=== PATIENT | male | born 1960 | race Caucasian/White ===

== ENCOUNTER 2024-07-15 08:33 | Inpatient (IN) | payer MEDICARE, OTHER ==
[~2024-07-15] VITALS: Ht 180.3 cm; Wt 129.3 kg
[~2024-07-15 08:33] MED LIST: VITAMIN D-40010 MCG PO
[2024-07-15] MEDS ORDERED: ACETAMINOPHEN 325 MG TAB PO PRN (16:20)
[2024-07-15] MEDS ORDERED: [UNRECOGNIZED DRUG - OTHER] IM PRN (16:25)
[2024-07-15] MEDS ORDERED: MG-AL HYDROXIDE/SIMETICONE 30 ML UDC PO PRN (16:25)
[2024-07-15] MEDS ORDERED: LORazepam 2 MG/ML VIAL IM PRN (16:25)
[2024-07-15] MEDS ORDERED: WATER STERILE IM PRN (16:25)
[2024-07-15] MEDS ORDERED: LORazepam 1 MG TAB PO PRN (16:25)
[2024-07-15] MEDS ORDERED: Magnesium Hydroxide 30 ML UDC PO PRN (16:25)
[2024-07-15] MEDS ORDERED: Ziprasidone Mesylate 20 MG VIAL IM PRN (17:00)
[2024-07-15] MEDS ORDERED: JARDIANCE25 MG PO (18:12)
[2024-07-15] MEDS ORDERED: XYZAL5 M1 PO (18:13)
[2024-07-15] MEDS ORDERED: LOSARTAN POTASS25 M1 PO (18:14)
[2024-07-15] MEDS ORDERED: MELATONIN3 MG PO (18:16)
[2024-07-15] MEDS ORDERED: NOVOLOG100 UNIT/1 SQ (18:17)
[2024-07-15] MEDS ORDERED: MIRTAZAPINE15 M2 PO (18:17)
[2024-07-15] MEDS ORDERED: PANTOPRAZOLE SO40 MG PO (18:20)
[2024-07-15] MEDS ORDERED: ROSUVASTATIN CA20 MG PO (18:21)
[2024-07-15] MEDS ORDERED: POTASSIUM CHLO20 MEQ PO (18:21)
[2024-07-15] MEDS ORDERED: NORVASC5 MG PO (18:22)
[2024-07-15] MEDS ORDERED: VAZALORE81 MG PO (18:23)
[2024-07-15] MEDS ORDERED: BUMETANIDE2 MG PO (18:24)
[2024-07-15] MEDS ORDERED: COLESEVELAM HC625 MG PO (18:25)
[2024-07-15] MEDS ORDERED: CLOPIDOGREL75 MG PO (18:25)
[2024-07-15] MEDS ORDERED: VISTARIL25 MG PO (18:26)
[2024-07-15] MEDS ORDERED: Mirtazapine 15 MG TAB PO SCH (21:00)
[2024-07-15] MEDS ORDERED: RISPERIDONE 1 MG TAB PO SCH (21:00)
[2024-07-17] MEDS ORDERED: REMERON15 M2 PO (11:30)
[2024-07-17 14:27] VITALS: BP 139/58
[2024-07-18] MEDS ORDERED: Pantoprazole Sodium 40 MG TAB PO SCH (06:00)
[2024-07-18 08:00] VITALS: BP 149/59
[2024-07-18] MEDS ORDERED: INSULIN LISPRO 1 UNIT/0.01 ML SQ SCH ×2 (08:00→11:30)
[2024-07-18] MEDS ORDERED: Cetirizine Hydrochloride 10 MG TAB PO SCH (09:00)
[2024-07-18] MEDS ORDERED: ASPIRIN, CHEWABLE 81 MG TAB PO SCH (09:00)
[2024-07-18] MEDS ORDERED: amLODIPine besylate 5 MG TAB PO SCH (10:00)
[2024-07-18] MEDS ORDERED: BUMETANIDE 1 MG TAB PO SCH (10:00)
[2024-07-18] MEDS ORDERED: hydrOXYzine pamoate 25 MG CAP PO SCH (10:00)
[2024-07-18] MEDS ORDERED: Clopidogrel Hydrogen Sulfate 75 MG TAB PO SCH (10:00)
[2024-07-18] MEDS ORDERED: EMPAGLIFLOZIN 25 MG TABLET PO SCH (10:00)
[2024-07-18] MEDS ORDERED: Losartan Potassium 25 MG TAB PO SCH (10:00)
[2024-07-18] MEDS ORDERED: DEXTROSE 10 % IN WATER 250 ML IV PRN (10:15)
[2024-07-18 20:00] VITALS: BP 137/63
[2024-07-18] MEDS ORDERED: ATORVASTATIN CALCIUM 80 MG TAB PO SCH (21:00)
[2024-07-18] MEDS ORDERED: RISPERIDONE 0.5 MG TAB PO SCH (21:00)
[2024-07-18] MEDS ORDERED: RAMELTEON 8 MG TAB PO SCH (21:00)
[2024-07-18] MEDS ORDERED: Mirtazapine 15 MG TAB PO SCH (22:00)
[2024-07-19 08:00] VITALS: BP 158/66
[2024-07-19] MEDS ORDERED: Losartan Potassium 25 MG TAB PO SCH (09:00)
[2024-07-19] MEDS ORDERED: EMPAGLIFLOZIN 25 MG TABLET PO SCH (09:00)
[2024-07-19] MEDS ORDERED: BUMETANIDE 1 MG TAB PO SCH (09:00)
[2024-07-19] MEDS ORDERED: amLODIPine besylate 5 MG TAB PO SCH (09:00)
[2024-07-19] MEDS ORDERED: Clopidogrel Hydrogen Sulfate 75 MG TAB PO SCH (09:00)
[2024-07-19] MEDS ORDERED: hydrOXYzine pamoate 25 MG CAP PO SCH ×2 (09:00→13:00)
[2024-07-19] MEDS ORDERED: Loperamide Hydrochloride 2 MG CAP PO ONE ×2 (12:40→13:05)
[2024-07-19 20:00] VITALS: BP 145/70
[2024-07-19] MEDS ORDERED: CLOZAPINE PO SCH (21:00)
[2024-07-20 08:16] VITALS: BP 145/55
[2024-07-20 20:00] VITALS: BP 134/50
[2024-07-21 08:00] VITALS: BP 120/74
[2024-07-21] MEDS ORDERED: diphenhydrAMINE hydrochloride 25 MG CAP PO ONE (09:20)
[2024-07-21] MEDS ORDERED: CLOZARIL PO ONE (09:20)
[2024-07-21] MEDS ORDERED: MED. FROM HOME 1 EACH EA PO ONE (10:25)
[2024-07-21] MEDS ORDERED: SODIUM CHLORIDE 0.9% 1,000 ML IV ONE (14:35)
[2024-07-21 20:00] VITALS: BP 120/74; BP 145/62
[2024-07-21] MEDS ORDERED: Mirtazapine 15 MG TAB PO SCH (21:00)
[2024-07-21] MEDS ORDERED: MED. FROM HOME 1 EACH EA PO SCH (21:00)
[2024-07-21] MEDS ORDERED: TEMAZEPAM 15 MG CAP PO PRN (22:00)
[2024-07-21] MEDS ORDERED: clonAZEPAM 1 MG TAB PO ONE (22:30)
[2024-07-22 07:37] LABS: BASO % 0.5 % (0.0-1.0); EOS % 0.2 % (1.0-4.0); HEMATOCRIT 46.3 % (42.0-52.0); MEAN CELL VOLUME 89.2 fl (80.0-94.0); MEAN CORPUSCULAR HGB 30.4 pg (27.0-31.0); MEAN CORPUSCULAR HGB CONC 34.1 g/dl (33.0-37.0); MEAN PLATELET VOLUME 8.9 fl (9.6-12.3); MONO # 0.8 10*3/uL (0.1-1.0); MONO % 9.4 % (3.0-9.0); NEUT # 5.6 10*3/uL (2.3-7.9); NEUT % 68.5 % (47.0-73.0); PLATELET COUNT AUTOMATED 254 10*3/uL (130-400); RED BLOOD COUNT 5.19 10*6/uL (4.50-5.90); RED CELL DISTRI WIDTH 12.5 % (0-14.5); WHITE BLOOD COUNT 8.2 10*3/uL (4.8-10.8)
[2024-07-22 07:58] LABS: ALKALINE PHOSPHATASE 61 U/L (46-116); BUN 18 mg/dl (9-23); CHLORIDE 100 mmol/L (98-107); POTASSIUM 4.3 mmol/L (3.4-5.1); SGPT/ALT 14 U/L (5-49); TOTAL PROTEIN 7.6 gm/dL (6.0-8.0)
[2024-07-22 08:06] VITALS: BP 123/65
[2024-07-22 19:48] VITALS: BP 131/59
[2024-07-23 07:55] VITALS: BP 143/61
[2024-07-23] MEDS ORDERED: LORazepam 2 MG/ML VIAL IM PRN (16:20)
[2024-07-23] MEDS ORDERED: LORazepam 1 MG TAB PO PRN (16:20)
[2024-07-23 20:00] VITALS: BP 151/65
[2024-07-24 08:00] VITALS: BP 145/70
[2024-07-24] MEDS ORDERED: SODIUM CHLORIDE Nasal 44 ml bottle NAS SCH ×2 (10:00)
[2024-07-24 11:41] LABS: VITAMIN D, 25-HYDROXY 44.2 ng/mL (30-100)
[2024-07-24 19:09] VITALS: BP 135/63
[2024-07-24] MEDS ORDERED: MED. FROM HOME 1 EACH EA PO SCH (21:00)
[2024-07-25] MEDS ORDERED: Water, Sterile 10 ML VIAL ONE (00:52)
[2024-07-25 08:31] VITALS: BP 121/89
[2024-07-25 20:00] VITALS: BP 143/74
[2024-07-26 07:52] VITALS: BP 140/70
[2024-07-26] MEDS ORDERED: clonAZEPAM 0.5 MG TAB PO SCH (09:35)
[2024-07-26 20:00] VITALS: BP 122/68
[2024-07-26] MEDS ORDERED: MED. FROM HOME 1 EACH EA PO SCH (21:00)
[2024-07-26] MEDS ORDERED: clonAZEPAM 1 MG TAB PO SCH (21:00)
[2024-07-26] MEDS ORDERED: Insulin Glargine, Recombinan 300 UNITS/3 ML PEN SC SCH (22:00)
[2024-07-27 08:00] VITALS: BP 147/77
[2024-07-27] MEDS ORDERED: HALOPERIDOL 5 MG TAB PO ONE (10:00)
[2024-07-27 20:00] VITALS: BP 130/72
[2024-07-27] MEDS ORDERED: HALOPERIDOL 5 MG TAB PO SCH (21:00)
[2024-07-27] MEDS ORDERED: MED. FROM HOME 1 EACH EA PO SCH ×2 (21:00)
[2024-07-28 07:45] VITALS: BP 141/79
[2024-07-28 20:00] VITALS: BP 128/66
[2024-07-28] MEDS ORDERED: HALOPERIDOL 5 MG TAB PO SCH (21:00)
[2024-07-28] MEDS ORDERED: CLOZARIL 200 MG PO SCH (21:00)
[2024-07-28] MEDS ORDERED: MED. FROM HOME 1 EACH EA PO SCH (21:00)
[2024-07-29 08:02] VITALS: BP 151/94
[2024-07-29 10:29] LABS: BASO # 0.1 10*3/uL (0.0-0.1); BASO % 0.5 % (0.0-1.0); EOS % 0.1 % (1.0-4.0); HEMATOCRIT 46.6 % (42.0-52.0); MEAN CELL VOLUME 88.1 fl (80.0-94.0); MEAN CORPUSCULAR HGB CONC 35.2 g/dl (33.0-37.0); MEAN PLATELET VOLUME 8.9 fl (9.6-12.3); MONO % 6.7 % (3.0-9.0); NEUT # 11.4 10*3/uL (2.3-7.9); NEUT % 80.1 % (47.0-73.0); PLATELET COUNT AUTOMATED 251 10*3/uL (130-400); RED BLOOD COUNT 5.29 10*6/uL (4.50-5.90); RED CELL DISTRI WIDTH 12.9 % (0-14.5); WHITE BLOOD COUNT 14.3 10*3/uL (4.8-10.8)
[2024-07-29 11:24] LABS: ALKALINE PHOSPHATASE 68 U/L (46-116); BUN 16 mg/dl (9-23); CHLORIDE 95 mmol/L (98-107); POTASSIUM 4.6 mmol/L (3.4-5.1); SGPT/ALT 13 U/L (5-49); TOTAL PROTEIN 7.4 gm/dL (6.0-8.0)
[2024-07-29 11:59] LABS: BILIRUBIN Negative (Negative); BLOOD Negative (Negative); CLARITY Clear (Clear); COLOR Yellow (Yellow); GLUCOSE 3+ (Negative); KETONE 1+ (Negative); LEUKO ESTERASE Negative (Negative); NITRITE Negative (Negative); SPECIFIC GRAVITY 1.015 (1.001-1.030); UROBILINOGEN 0.2 E.U./dl (0.0-1.0)
[2024-07-29 12:38] LABS: RBC 0-2 rbc/hpf (0-2); WBC 0-2 wbc/hpf (0-5)
[2024-07-29 20:00] VITALS: BP 133/72
[2024-07-30 08:13] VITALS: BP 128/63
[2024-07-30] MEDS ORDERED: Benzocaine/Menthol 1 LOZ LOZENGE PO PRN (12:35)
[2024-07-30 20:00] VITALS: BP 147/62
[2024-07-30] MEDS ORDERED: MED. FROM HOME 1 EACH EA PO SCH (21:00)
[2024-07-31 07:00] LABS: BUN 18 mg/dl (9-23); CHLORIDE 97 mmol/L (98-107)
[2024-07-31 07:23] LABS: BASO # 0.1 10*3/uL (0.0-0.1); BASO % 0.9 % (0.0-1.0); EOS # 0.1 10*3/uL (0.0-0.4); EOS % 0.7 % (1.0-4.0); MEAN CELL VOLUME 88.9 fl (80.0-94.0); MEAN CORPUSCULAR HGB 30.4 pg (27.0-31.0); MEAN CORPUSCULAR HGB CONC 34.2 g/dl (33.0-37.0); MEAN PLATELET VOLUME 9.3 fl (9.6-12.3); MONO # 0.9 10*3/uL (0.1-1.0); MONO % 10.4 % (3.0-9.0); NEUT # 4.5 10*3/uL (2.3-7.9); NEUT % 54.7 % (47.0-73.0); PLATELET COUNT AUTOMATED 264 10*3/uL (130-400); RED CELL DISTRI WIDTH 12.9 % (0-14.5); WHITE BLOOD COUNT 8.2 10*3/uL (4.8-10.8)
[2024-07-31 08:00] VITALS: BP 133/67
[2024-07-31 20:00] VITALS: BP 132/66
[2024-07-31] MEDS ORDERED: MED. FROM HOME 1 EACH EA PO SCH (21:00)
[2024-07-31] MEDS ORDERED: CLOZAPINE 300 MG PO SCH (21:00)
[2024-08-01 08:00] VITALS: BP 128/67
[2024-08-01 20:00] VITALS: BP 120/62
[2024-08-02 08:00] VITALS: BP 133/61
[2024-08-02] MEDS ORDERED: INSULIN LISPRO 1 UNIT/0.01 ML SQ SCH (16:30)
[2024-08-02] MEDS ORDERED: IBUPROFEN 600 MG TAB PO ONE (17:55)
[2024-08-02 20:00] VITALS: BP 131/64
[2024-08-03 06:56] LABS: BASO # 0.1 10*3/uL (0.0-0.1); BASO % 0.8 % (0.0-1.0); EOS # 0.1 10*3/uL (0.0-0.4); EOS % 1.2 % (1.0-4.0); HEMATOCRIT 45.1 % (42.0-52.0); MEAN CELL VOLUME 89.1 fl (80.0-94.0); MEAN CORPUSCULAR HGB 30.4 pg (27.0-31.0); MEAN CORPUSCULAR HGB CONC 34.1 g/dl (33.0-37.0); MONO # 0.9 10*3/uL (0.1-1.0); MONO % 11.3 % (3.0-9.0); NEUT # 4.4 10*3/uL (2.3-7.9); NEUT % 58.8 % (47.0-73.0); PLATELET COUNT AUTOMATED 252 10*3/uL (130-400); RED BLOOD COUNT 5.06 10*6/uL (4.50-5.90); RED CELL DISTRI WIDTH 12.9 % (0-14.5); WHITE BLOOD COUNT 7.5 10*3/uL (4.8-10.8)
[2024-08-03 08:00] VITALS: BP 134/76
[2024-08-03 20:00] VITALS: BP 127/50
[2024-08-03] MEDS ORDERED: clonAZEPAM 0.5 MG TAB PO SCH (21:00)
[2024-08-04 08:00] VITALS: BP 109/64
[2024-08-04] MEDS ORDERED: clonAZEPAM 0.5 MG TAB PO SCH (09:00)
[2024-08-04 20:00] VITALS: BP 117/62
[2024-08-04] MEDS ORDERED: Insulin Glargine, Recombinan 300 UNITS/3 ML PEN SC SCH (21:00)
[2024-08-05 08:12] VITALS: BP 112/59
[2024-08-05 20:00] VITALS: BP 115/57
[2024-08-05] MEDS ORDERED: clonAZEPAM 2 MG TAB PO SCH (21:00)
[2024-08-06 06:50] LABS: BUN 20 mg/dl (9-23); CHLORIDE 98 mmol/L (98-107); POTASSIUM 3.6 mmol/L (3.4-5.1)
[2024-08-06 08:08] VITALS: BP 126/78
[2024-08-06 20:00] VITALS: BP 127/62
[2024-08-07 06:59] LABS: BASO % 0.4 % (0.0-1.0); EOS # 0.4 10*3/uL (0.0-0.4); EOS % 4.1 % (1.0-4.0); HEMATOCRIT 46.1 % (42.0-52.0); MEAN CORPUSCULAR HGB 31.1 pg (27.0-31.0); MEAN CORPUSCULAR HGB CONC 34.9 g/dl (33.0-37.0); MONO # 1.2 10*3/uL (0.1-1.0); MONO % 12.9 % (3.0-9.0); NEUT # 6.5 10*3/uL (2.3-7.9); NEUT % 72.4 % (47.0-73.0); PLATELET COUNT AUTOMATED 229 10*3/uL (130-400); RED BLOOD COUNT 5.18 10*6/uL (4.50-5.90)
[2024-08-07 07:31] LABS: BUN 17 mg/dl (9-23); CHLORIDE 100 mmol/L (98-107); POTASSIUM 3.9 mmol/L (3.4-5.1)
[2024-08-07 08:00] VITALS: BP 113/55
[2024-08-07] MEDS ORDERED: Albuterol Sulf/Ipratropium 3 ML VIAL NEB SCH (10:00)
[2024-08-07 20:00] VITALS: BP 111/64
[2024-08-07] MEDS ORDERED: GUAIFENESIN 600 MG TAB ER PO SCH (21:00)
[2024-08-07] MEDS ORDERED: Doxycycline Hyclate 100 MG CAP PO SCH (21:00)
[2024-08-07] MEDS ORDERED: Amoxicillin/Clavulanate Pota 875 MG TAB PO SCH (21:00)
[2024-08-08 08:24] VITALS: BP 150/82
[2024-08-08] MEDS ORDERED: VITAMIN E 400 IU CAP PO SCH (09:05)
[2024-08-08] MEDS ORDERED: Albuterol Sulf/Ipratropium 3 ML VIAL NEB PRN (10:40)
[2024-08-08 20:00] VITALS: BP 128/57
[2024-08-09 07:46] VITALS: BP 134/62
[2024-08-09 08:38] LABS: BASO % 0.4 % (0.0-1.0); EOS # 0.1 10*3/uL (0.0-0.4); EOS % 0.9 % (1.0-4.0); HEMATOCRIT 44.6 % (42.0-52.0); MEAN CELL VOLUME 90.1 fl (80.0-94.0); MEAN CORPUSCULAR HGB 30.7 pg (27.0-31.0); MEAN CORPUSCULAR HGB CONC 34.1 g/dl (33.0-37.0); MEAN PLATELET VOLUME 8.5 fl (9.6-12.3); MONO # 0.8 10*3/uL (0.1-1.0); MONO % 9.9 % (3.0-9.0); NEUT # 5.8 10*3/uL (2.3-7.9); NEUT % 75.4 % (47.0-73.0); PLATELET COUNT AUTOMATED 232 10*3/uL (130-400); RED BLOOD COUNT 4.95 10*6/uL (4.50-5.90); RED CELL DISTRI WIDTH 13.2 % (0-14.5); WHITE BLOOD COUNT 7.7 10*3/uL (4.8-10.8)
[2024-08-09 09:04] LABS: ALKALINE PHOSPHATASE 95 U/L (46-116); BUN 17 mg/dl (9-23); CHLORIDE 103 mmol/L (98-107); POTASSIUM 3.5 mmol/L (3.4-5.1); SGPT/ALT 27 U/L (5-49); TOTAL PROTEIN 6.9 gm/dL (6.0-8.0)
[2024-08-09 17:10] LABS: BACTERIA 3+; BILIRUBIN Negative (Negative); BLOOD Negative (Negative); CLARITY Clear (Clear); COLOR Yellow (Yellow); GLUCOSE 3+ (Negative); KETONE 2+ (Negative); LEUKO ESTERASE Negative (Negative); NITRITE Negative (Negative); UROBILINOGEN 0.2 E.U./dl (0.0-1.0)
[2024-08-09 20:00] VITALS: BP 146/60
[2024-08-09] MEDS ORDERED: Menthol/Zinc Oxide 4 GM THIN T SCH (21:00)
[2024-08-10 08:00] VITALS: BP 126/46
[2024-08-10 20:00] VITALS: BP 128/58
[2024-08-10] MEDS ORDERED: CEFDINIR 300 MG CAP PO SCH (21:00)
[2024-08-11 06:40] LABS: BASO % 0.3 % (0.0-1.0); EOS # 0.1 10*3/uL (0.0-0.4); EOS % 0.9 % (1.0-4.0); MEAN CELL VOLUME 88.4 fl (80.0-94.0); MEAN CORPUSCULAR HGB 30.5 pg (27.0-31.0); MEAN CORPUSCULAR HGB CONC 34.5 g/dl (33.0-37.0); MEAN PLATELET VOLUME 8.5 fl (9.6-12.3); MONO # 1.1 10*3/uL (0.1-1.0); MONO % 11.3 % (3.0-9.0); NEUT # 7.1 10*3/uL (2.3-7.9); NEUT % 71.7 % (47.0-73.0); PLATELET COUNT AUTOMATED 271 10*3/uL (130-400); RED BLOOD COUNT 4.98 10*6/uL (4.50-5.90); RED CELL DISTRI WIDTH 13.3 % (0-14.5); WHITE BLOOD COUNT 9.9 10*3/uL (4.8-10.8)
[2024-08-11 07:06] LABS: BUN 15 mg/dl (9-23); CHLORIDE 99 mmol/L (98-107); POTASSIUM 3.3 mmol/L (3.4-5.1)
[2024-08-11 08:00] VITALS: BP 133/63
[2024-08-11] MEDS ORDERED: AZITHROMYCIN 250 MG TAB PO SCH (09:00)
[2024-08-11] MEDS ORDERED: CLOZARIL200 MG PO (09:16)
[2024-08-11] MEDS ORDERED: ZITHROMAX500 MG PO (09:17)
[2024-08-11] MEDS ORDERED: ZITHROMAX250 MG PO (09:18)
[2024-08-11] MEDS ORDERED: [UNRECOGNIZED DRUG - OTHER] PO (09:19)
[2024-08-11] MEDS ORDERED: VANCOCIN125 MG PO (09:20)
[2024-08-11] MEDS ORDERED: HUMALOG100 UNIT/1 SC (09:20)
[2024-08-11] MEDS ORDERED: AMOX-CLAV 875-1 EACH PO (09:23)
[2024-08-11] MEDS ORDERED: KLONOPIN2 M1 PO (09:24)
[2024-08-11] MEDS ORDERED: LANTUS SOL100 UNIT/1 SC (09:25)
[2024-08-11] MEDS ORDERED: VITAMIN E180 M1 PO (09:25)
[2024-08-11] MEDS ORDERED: VANCOMYCIN HCL 125 MG CAPSULE PO SCH ×2 (10:00)
[2024-08-11] MEDS ORDERED: Lactobacillus Acidophilus/LA 1 TAB TAB PO SCH (10:00)
[2024-08-12] MEDS ORDERED: AZITHROMYCIN 250 MG TAB PO SCH (09:00)
== END 2024-08-11 10:10 | disposition short-term general hospital (02) | DRG 885 ==
LOC: 3N
PROVIDERS: Counselor Professional; Internal Medicine; Nurse Practitioner; Registered Nurse; Student in an Organized Health Care Education/Training Program; ADMIT Psychiatry & Neurology Psychiatry; ATTEND Psychiatry & Neurology Psychiatry
PROC: GZHZZZZ Group Psychotherapy (ICD-10-PCS; principal; 2024-07-18)
PROC: GZ51ZZZ Individual Psychotherapy, Behavioral (ICD-10-PCS; 2024-07-18)
PROC: 5A09357 Assistance with Respiratory Ventilation, Less than 24 Consecutive Hours, Continuous Positive Airway Pressure (ICD-10-PCS; 2024-07-29)
PROC: 5A09357 Assistance with Respiratory Ventilation, Less than 24 Consecutive Hours, Continuous Positive Airway Pressure (ICD-10-PCS; 2024-07-30)
PROC: 5A09357 Assistance with Respiratory Ventilation, Less than 24 Consecutive Hours, Continuous Positive Airway Pressure (ICD-10-PCS; 2024-07-31)
PROC: 5A09357 Assistance with Respiratory Ventilation, Less than 24 Consecutive Hours, Continuous Positive Airway Pressure (ICD-10-PCS; 2024-08-02)
PROC: 5A09357 Assistance with Respiratory Ventilation, Less than 24 Consecutive Hours, Continuous Positive Airway Pressure (ICD-10-PCS; 2024-08-03)
PROC: 5A09357 Assistance with Respiratory Ventilation, Less than 24 Consecutive Hours, Continuous Positive Airway Pressure (ICD-10-PCS; 2024-08-04)
PROC: 5A09357 Assistance with Respiratory Ventilation, Less than 24 Consecutive Hours, Continuous Positive Airway Pressure (ICD-10-PCS; 2024-08-05)
PROC: 5A09357 Assistance with Respiratory Ventilation, Less than 24 Consecutive Hours, Continuous Positive Airway Pressure (ICD-10-PCS; 2024-08-06)
PROC: 5A09357 Assistance with Respiratory Ventilation, Less than 24 Consecutive Hours, Continuous Positive Airway Pressure (ICD-10-PCS; 2024-08-07)
PROC: 5A09357 Assistance with Respiratory Ventilation, Less than 24 Consecutive Hours, Continuous Positive Airway Pressure (ICD-10-PCS; 2024-08-08)
DX: F25.0 Schizoaffective disorder, bipolar type (principal); J18.9 Pneumonia, unspecified organism; F43.21 Adjustment disorder with depressed mood; I10 Essential (primary) hypertension; E78.2 Mixed hyperlipidemia; I25.10 Atherosclerotic heart disease of native coronary artery without angina pectoris; F41.1 Generalized anxiety disorder; E11.42 Type 2 diabetes mellitus with diabetic polyneuropathy; K21.9 Gastro-esophageal reflux disease without esophagitis; E78.1 Pure hyperglyceridemia; Z79.4 Long term (current) use of insulin; Z90.49 Acquired absence of other specified parts of digestive tract; Z82.49 Family history of ischemic heart disease and other diseases of the circulatory system; Z80.3 Family history of malignant neoplasm of breast; Z79.899 Other long term (current) drug therapy

== ENCOUNTER 2024-07-17 08:29 | Emergency (ER) | payer MEDICARE, OTHER ==
[~2024-07-17] VITALS: Ht 180.3 cm; Wt 127.0 kg
[~2024-07-17 08:29] MED LIST changes: +BUMETANIDE2 MG PO; +CLOPIDOGREL75 MG PO; +COLESEVELAM HC625 MG PO; +JARDIANCE25 MG PO; +LOSARTAN POTASS25 M1 PO; +MELATONIN3 MG PO; +MIRTAZAPINE15 M2 PO; +NORVASC5 MG PO; +NOVOLOG100 UNIT/1 SQ; +PANTOPRAZOLE SO40 MG PO; +POTASSIUM CHLO20 MEQ PO; +ROSUVASTATIN CA20 MG PO; +VAZALORE81 MG PO; +VISTARIL25 MG PO; +XYZAL5 M1 PO
[2024-07-17 09:03] LABS: BILIRUBIN Negative (Negative); BLOOD Negative (Negative); CLARITY Clear (Clear); COLOR Yellow (Yellow); GLUCOSE 3+ (Negative); KETONE Negative (Negative); LEUKO ESTERASE Negative (Negative); NITRITE Negative (Negative); UROBILINOGEN 0.2 E.U./dl (0.0-1.0)
[2024-07-17 09:10] LABS: EPITHELIAL CELLS 0-2; RBC 0-2 rbc/hpf (0-2); URINE AMPHETAMINES Negative (1000ng/ml); URINE BARBITURATES Negative (200ng/ml); URINE BENZODIAZEPINES Negative (200ng/ml); URINE CANNABINOIDS (THC) Negative (50ng/ml); URINE COCAINE Negative (300ng/ml); URINE METHADONE Negative (300ng/ml); URINE OPIATES Negative (300ng/ml); URINE PHENCYCLIDINE Negative (25ng/ml); WBC 0-2 wbc/hpf (0-5)
[2024-07-17 09:31] LABS: BASO % 0.5 % (0.0-1.0); EOS % 0.5 % (1.0-4.0); HEMATOCRIT 41.3 % (42.0-52.0); MEAN CELL VOLUME 88.2 fl (80.0-94.0); MEAN CORPUSCULAR HGB 30.3 pg (27.0-31.0); MEAN CORPUSCULAR HGB CONC 34.4 g/dl (33.0-37.0); MEAN PLATELET VOLUME 8.8 fl (9.6-12.3); MONO # 0.8 10*3/uL (0.1-1.0); NEUT # 5.2 10*3/uL (2.3-7.9); NEUT % 65.7 % (47.0-73.0); PLATELET COUNT AUTOMATED 224 10*3/uL (130-400); RED BLOOD COUNT 4.68 10*6/uL (4.50-5.90); RED CELL DISTRI WIDTH 13.2 % (0-14.5); WHITE BLOOD COUNT 7.9 10*3/uL (4.8-10.8)
[2024-07-17 10:01] LABS: ALKALINE PHOSPHATASE 55 U/L (46-116); BUN 20 mg/dl (9-23); CHLORIDE 105 mmol/L (98-107); POTASSIUM 4.1 mmol/L (3.4-5.1); SGPT/ALT 15 U/L (5-49); TOTAL PROTEIN 6.9 gm/dL (6.0-8.0)
[2024-07-17 10:10] LABS: ETHYL ALCOHOL < 3.0 mg/dl (<3)
[2024-07-17] MEDS ORDERED: REMERON15 M2 PO (11:30)
[2024-07-17] MEDS ORDERED: ACETAMINOPHEN 325 MG TAB PO PRN (13:05)
[2024-07-17] MEDS ORDERED: RISPERIDONE 1 MG TAB PO SCH (18:00)
[2024-07-17] MEDS ORDERED: hydrOXYzine pamoate 25 MG CAP PO SCH (18:00)
[2024-07-17] MEDS ORDERED: Mirtazapine 15 MG TAB PO SCH (22:00)
[2024-07-18 06:29] LABS: ALKALINE PHOSPHATASE 55 U/L (46-116); BUN 14 mg/dl (9-23); CHLORIDE 104 mmol/L (98-107); CHOLESTEROL 170 mg/dL (<200); LDL CHOLESTEROL 75 mg/dL (9-159); POTASSIUM 4.1 mmol/L (3.4-5.1); SGPT/ALT 13 U/L (5-49); TOTAL PROTEIN 7.1 gm/dL (6.0-8.0); TRIGLYCERIDES 308 mg/dl (<150)
[2024-07-18 06:31] LABS: BASO % 0.4 % (0.0-1.0); EOS # 0.1 10*3/uL (0.0-0.4); EOS % 0.7 % (1.0-4.0); HEMATOCRIT 44.9 % (42.0-52.0); MEAN CELL VOLUME 90.5 fl (80.0-94.0); MEAN CORPUSCULAR HGB 30.8 pg (27.0-31.0); MEAN CORPUSCULAR HGB CONC 34.1 g/dl (33.0-37.0); MEAN PLATELET VOLUME 9.1 fl (9.6-12.3); MONO # 0.7 10*3/uL (0.1-1.0); MONO % 8.9 % (3.0-9.0); NEUT % 67.9 % (47.0-73.0); PLATELET COUNT AUTOMATED 223 10*3/uL (130-400); RED BLOOD COUNT 4.96 10*6/uL (4.50-5.90); RED CELL DISTRI WIDTH 12.9 % (0-14.5); WHITE BLOOD COUNT 7.4 10*3/uL (4.8-10.8)
[2024-07-18 10:16] LABS: VITAMIN D, 25-HYDROXY 45.9 ng/mL (30-100)
== END 2024-07-17 10:57 | disposition home or self-care (01) ==
LOC: ED 08:29
PROVIDERS: Internal Medicine; Psychiatry & Neurology Psychiatry
DX: F43.21 Adjustment disorder with depressed mood (principal); F03.90 Unspecified dementia, unspecified severity, without behavioral disturbance, psychotic disturbance, mood disturbance, and anxiety; I10 Essential (primary) hypertension; E78.5 Hyperlipidemia, unspecified; E11.9 Type 2 diabetes mellitus without complications; Z79.899 Other long term (current) drug therapy; Z20.822 Contact with and (suspected) exposure to COVID-19